=== PATIENT | male | born 1950 | race African-American/Black ===

== ENCOUNTER 2016-07-14 06:21 | Day surgery (SDC) | payer MEDICARE ==
[2016-07-14] VITALS (8 sets, daily range): BP systolic 121–141; BP diastolic 64–73; PULSE 18–64; RESP 16–56; TEMP 97.7–97.8; O2SAT 100
[~2016-07-14] VITALS: Ht 182.9 cm; Wt 68.2 kg
[~2016-07-14 06:21] MED LIST: DOXY100T PO; IBUP800T23 PO; LACT20SO4 PO
[2016-07-14] MEDS ORDERED: ALEV220T14 PO (06:41)
[2016-07-14] MEDS ORDERED: SODIUM CHLOR 0.9% 1000 ML IV SCH (07:00)
[2016-07-14 07:12] LABS: AUTOMATED NEUTROPHIL # 1.2 TH/MM3 (1.8-7.7); BASOPHIL % 0.7 % (0.0-2.0); EOSINOPHIL # 1.1 TH/MM3 (0-0.4); HEMATOCRIT 36.9 % (39.0-51.0); LYMPH % 42.7 % (9.0-44.0); LYMPHOCYTE # 2.1 TH/MM3 (1.0-4.8); MEAN CELL VOLUME 87.6 FL (80.0-100.0); MEAN CORPUSCULAR HEMOGLOBIN 28.1 PG (27.0-34.0); MEAN CORPUSCULAR HGB CONC 32.1 % (32.0-36.0); NEUT % 24.6 % (16.0-70.0); PLATELET COUNT 95 TH/MM3 (150-450); RED BLOOD COUNT 4.21 MIL/MM3 (4.50-5.90); RED CELL DISTRIBUTION WIDTH 14.2 % (11.6-17.2)
[2016-07-14 07:13] LABS: HEMO FLAGS AUTO DIFF
[2016-07-14 07:23] LABS: APTT (PATIENT) 36.2 SEC (24.3-30.1); INTERNATIONAL NORMALIZED RATIO 1.3 RATIO; PROTHROMBIN TIME - PATIENT 14.8 SEC (9.8-11.6)
[2016-07-14] MEDS ORDERED: MIDAZOLAM HCL 5 MG/5 ML VIAL ONE (07:45)
[2016-07-14] MEDS ORDERED: fentaNYL CITRATE 250 MCG/5 ML AMP ONE (07:45)
[2016-07-14] MEDS ORDERED: LIDOCAINE HCL 1% 20 ML VIAL ONE (07:46)
[2016-07-14] MEDS ORDERED: SODIUM BICARB 8.4% (PED) INJ 10 MEQ/10 ML SYR ONE (07:46)
[2016-07-14 08:15] LABS: PLATELET ESTIMATE SMEAR LOW (NORMAL); PLATELET MORPHOLOGY ENLARGED (NORMAL); SCAN/DIFF AUTO DIFF CONFIRMED
[2016-07-14] MEDS ORDERED: HYDROmorphone HCL 2 MG TAB PO PRN (09:00)
[2016-07-14] MEDS ORDERED: PILL SPLITTER OTHER PRN (09:00)
--- NOTE | 2016-07-14 15:32 | RADRPT ---
EXAM DATE/TIME: 07/14/2016 08:11 [place] COMPARISON: No previous studies available for comparison. INDICATIONS : Hepatitis C. SEDATION TIME: 15 minutes BIOPSY SITE: liver MEDICATION(S): 1.) 2 mg midazolam (Versed) IV 2.) 100 mcg fentanyl (Sublimaze) IV DEVICE(S): 1.) 18 gauge Temno core biopsy needle 6cm MEDICAL HISTORY : Hepatitis C. SURGICAL HISTORY : None. ENCOUNTER: Initial ACUITY: 1 day PAIN SCORE: 0/10 LOCATION: Right abdomen A total of two core specimen(s) were obtained and sent to the laboratory for pathologic evaluation. PROCEDURE: 1. CT guided liver biopsy. 2. Conscious sedation with continuous EKG and oximetry monitoring. Prior to the procedure informed consent was obtained. Any appropriate prior imaging studies were rev iewed. Using automated exposure control and adjustment of the mA and/or kV according to patient size, radiat ion dose was kept as low as reasonably achievable to obtain optimal diagnostic quality images. The site was prepped in a sterile fashion. Full sterile technique was used, including cap, mask, emmie rile gloves and gown and a large sterile sheet. Hand hygiene and 2% chlorhexidine and/or betadine/al cohol prep was utilized per protocol for cutaneous antisepsis. The skin and subcutaneous tissues wer e infiltrated with local anesthetic solution. With CT guidance the previously identified target was localized. Biopsy was performed using the presc ribed needle as above. Adequate hemostasis was obtained with compression at the puncture site. Follow-up CT scan reveals no hemorrhage. The patient tolerated the procedure well and there were no complications. The patient was returned to the Radiology Outpatient Unit in stable condition. CONCLUSION: Uncomplicated CT guided biopsy. Sudheer Graham MD on July 14, 2016 at 15:29 Board Certified Radiologist. This report was verified electronically.
== END 2016-07-14 13:30 | disposition home or self-care (01) ==
LOC: HRAD 06:21 → HRIP 06:41 → HRAD 13:30
PROVIDERS: ATTEND Physician Assistant Medical
DX: B18.2 Chronic viral hepatitis C (principal)
CPT/HCPCS: 47000; 77012; 85025; 85610; 85730; 88307; 88313; J2250; J3010